=== PATIENT | male | born 1950 | race Two or more races ===

== ENCOUNTER 2017-11-25 17:52 | Emergency (ER) | payer MEDICARE, MEDICAID ==
[~2017-11-25] VITALS: Ht 188 cm; Wt 97.1 kg
[~2017-11-25 17:52] MED LIST: PROGRAFT; PROTEIN; [UNRECOGNIZED DRUG - OTHER]
[2017-11-25 18:03] VITALS: BP 146/84
[2017-11-25] MEDS ORDERED: TRIAMCINOLONE 40MG/ML 1ML VIAL IX ONE (19:15)
[2017-11-25] MEDS ORDERED: LIDOCAINE 1% (LOCAL ANESTH.) PF 5ml SDV IJ ONE ×2 (19:15→20:00)
[2017-11-25] MEDS ORDERED: LIDOCAINE 1% HCL (LOCAL ANESTH.) INJ 20ML MDV ONE (19:18)
[2017-11-25] MEDS ORDERED: ONDANSETRON HCL 4 MG/2 ML VIAL IM ONE (20:15)
[2017-11-25] MEDS ORDERED: MEPERIDINE HCL (50 MG/ML) 1 ML VIAL IM ONE (20:15)
== END 2017-11-25 22:00 | disposition home or self-care (01) ==
LOC: EDBD 17:52 → ER 17:52
DX: M16.0 Bilateral primary osteoarthritis of hip (principal); M54.41 Lumbago with sciatica, right side; F17.210 Nicotine dependence, cigarettes, uncomplicated; G89.29 Other chronic pain; I10 Essential (primary) hypertension; Z88.0 Allergy status to penicillin
CPT/HCPCS: 20552; 73502; 96372; 99284; J2001; J2175; J2405; J3301

== ENCOUNTER 2019-05-03 14:18 | Emergency (ER) | payer MEDICARE, MEDICAID ==
[~2019-05-03] VITALS: Ht 188 cm; Wt 97.5 kg
[2019-05-03 16:27] VITALS: BP 136/70
== END 2019-05-03 16:30 | disposition home or self-care (01) ==
LOC: ER 14:30
DX: J02.9 Acute pharyngitis, unspecified (principal); I10 Essential (primary) hypertension; F17.210 Nicotine dependence, cigarettes, uncomplicated; Z88.0 Allergy status to penicillin; Z79.899 Other long term (current) drug therapy